=== PATIENT | male | born 1995 | race Hispanic/Latino ===

== ENCOUNTER 2024-03-19 20:35 | Emergency (ER) | payer SELFPAY ==
[2024-03-19 20:51] VITALS: BP 140/98
[2024-03-19 21:08] LABS: % Basophils 0.5 % (0-2); % Eosinophils 1.3 % (0-6); % Immature Granulocytes 0.5 % (0-0.5); % Lymphocytes 30.3 % (20.5-51.1); % Monocytes 5.2 % (1.7-9.3); % Neutrophils 62.2 % (42.2-75.2); Absolute Basophils 0.1 10^3/uL (0-0.2); Absolute Eosinophils 0.2 10^3/uL (0-0.7); Absolute Immature Granulocytes 0.1 10^3/uL (0-0.05); Absolute Lymphocytes 4.1 10^3/uL (1.2-3.4); Absolute Monocytes 0.7 10^3/uL (0.1-0.6); Absolute Neutrophils 8.4 10^3/uL (1.4-6.5); Hematocrit 41.6 % (39.0-52.0); Hemoglobin 14.6 g/dL (13.0-18.0); Mean Corp Hgb Conc. 35.1 g/dL (33.0-37.0); Mean Corpuscular Hgb 30.1 pg (27.0-31.0); Mean Corpuscular Volume 85.8 fL (80.0-94.0); Mean Platelet Volume 9.7 fL (7.4-10.4); Nucleated Red Blood Cells % 0 % (-); Platelet Count 359 10^3/uL (130-400); Red Blood Cell Count 4.85 10^6/uL (4.70-6.10); Red Cell Dist. Width 12.6 % (11.5-14.5); White Blood Cell Count 13.6 10^3/uL (4.8-10.8)
[2024-03-19 21:27] LABS: ALT (SGPT) 32 U/L (0-50); AST (SGOT) 23 U/L (17-59); Albumin 4.6 g/dl (3.5-5.0); Alkaline Phosphatase 99 U/L (38-126); Blood Urea Nitrogen 15 mg/dl (9-20); Calcium 9.8 mg/dl (8.4-10.2); Carbon Dioxide 25 mmol/L (22-30); Chloride 102 mmol/L (98-107); Glucose 125 mg/dl (70-99); Potassium 4.4 mmol/L (3.5-5.1); Sodium 139 mmol/L (135-145); Total Bilirubin 0.4 mg/dl (0.2-1.3); Total Protein 7.9 g/dl (6.3-8.2); eGFR > 60.00
[2024-03-19 21:28] LABS: Lipase 69 U/L (23-300)
--- NOTE | 2024-03-19 23:35 | ED.GENMED ---
History of Present Illness
General
Chief Complaint: Abdominal Pain
Time Seen by Provider: 03/19/24 23:19
Travel History
Have you had any contact with someone who has COVID-19?: No
Do you have any symptoms of coronavirus? Fever > 100 degrees, chills, cough, shortness of breath, sore throat, loss of taste or smell, muscle aches, or headache?: No
History of Present Illness
History of Present Illness:
HPI: At about 8 PM in the evening, the patient developed severe abrupt onset periumbilical pain. This is associated with nausea. He has not had pain like this in the past. He denies any prior surgical issues other than pilonidal cyst. He has not
had fevers.
EXAM:
GENERAL: Well appearing but appears somewhat uncomfortable
HEENT: Moist oral mucosa
CARDIOVASCULAR: No murmurs, normal heart rate, regular rhythm, No chest wall tenderness
PULMONARY: No respiratory distress, breath sounds are clear and equal
ABDOMEN: Soft with no peritoneal signs, mild. Tenderness
NEUROLOGIC: Excellent strength all extremities, no coordination deficits
PSYCHIATRIC: Appropriate mental status, normal insight and judgement
EXTREMITIES: Nontender, no edema, moves all extremities equally
SKIN: No rash, no lesions
TIME OF INITIAL ENCOUNTER: 11 PM
NUMBER AND COMPLEXITY OF PROBLEMS ADDRESSED AT THE ENCOUNTER
� Chronic conditions affecting care: ADHD, anxiety/depression, pilonidal cystectomy
� Acute Exacerbation and/or Progression of Chronic Illness: This is an acute problem
� Differential Diagnosis includes: Gastroenteritis, mesenteric adenitis, appendicitis, bowel obstruction, nonspecific abdominal pain
AMOUNT AND/OR COMPLEXITY OF DATA TO BE REVIEWED AND ANALYZED
� I performed an independent evaluation of and my interpretation is:
EKG:
CT: CT suggestive of mesenteric adenitis
X-rays:
Laboratory Studies: White count slightly elevated at 13.6, otherwise chemistries including LFTs and lipase are normal
Other:
� Review of other/old records:
� Clinical information was obtained by an independent historian: None needed
� Prescriptions/Medications Considered but not given:
� Further testing considered but not performed:
RISK OF COMPLICATIONS AND/OR MORBIDITY OR MORTALITY OF PATIENT MANAGEMENT
� Social determinants of health affecting care: Lives at home
� Discussion with other providers:
� Escalation of care including admission/observation vs risk of discharge considered: The patient was given Toradol, Zofran, fluids, and Pepcid upon arrival as he did appear somewhat uncomfortable. CT imaging obtained. CT
imaging suggest mesenteric adenitis. He was given Toradol earlier. On reassessment at 1:40 AM, the patient is very comfortable in appearance and is sleeping. As I woke him, he has appropriate mental status and appears very comfortable.
Recommended NSAIDs.
Phy Exam
Physical Exam
Physical Exam:
See HPI
Course
Orders/Labs/Results
Orders:
Orders
03/19/24 21:02
Complete Blood Count/With Diff Urgent
Comprehensive Metabolic Panel Urgent
Lipase Urgent
03/19/24 23:27
0.9% Sodium Chloride 1000 ml [Nss] 1,000 ml IV BOLUS
Famotidine [Pepcid] 20 mg IV NOW STA
Ketorolac [Toradol] 15 mg IV NOW STA
Ondansetron Injectable [Zofran] 4 mg IV NOW STA
03/20/24 00:20
CT Abd/pelvis W Iv Cont Urgent
Reason For Exam: severe periumb pain
Abnormal Lab Results
03/19/24
21:02
WBC 13.6 H 10^3/uL
(4.8-10.8)
Abs Immat Gran (auto) 0.1 H 10^3/uL
(0-0.05)
Absolute Neuts (auto) 8.4 H 10^3/uL
(1.4-6.5)
Absolute Lymphs (auto) 4.1 H 10^3/uL
(1.2-3.4)
Absolute Monos (auto) 0.7 H 10^3/uL
(0.1-0.6)
Glucose 125 H mg/dl
(70-99)
03/19/24 21:02
03/19/24 21:02
Vital Signs
Initial and Last Documented VS:
Initial Vital Signs
Temp Pulse Resp BP Pulse Ox
98.2 F 100 18 140/98 98
03/19/24 20:51 03/19/24 20:51 03/19/24 20:51 03/19/24 20:51 03/19/24 20:51
Last Documented Vital Signs
Temp Pulse Resp BP Pulse Ox
98.2 F 100 18 140/98 98
03/19/24 20:51 03/19/24 20:51 03/19/24 20:51 03/19/24 20:51 03/19/24 20:51
*Critical Care Note
Total Time (30-74mins, 75-104mins- exclusive of procedures): Not Applicable
ED Attending Note
-
Portions of this chart may have been created with voice recognition software.� Occasional wrong word or��sound alike� substitutions may have occurred due to the inherent limitations of voice recognition software.
Discharge Plan
Departure
Patient Disposition: Home (Routine Discharge)
Date of Disposition: 03/20/24
Time of Disposition: 01:41
Patient with high blood pressure during this ER visit?: Yes
Discharge Problem:
Acute mesenteric adenitis
Instructions: Mesenteric Lymphadenitis (DC)
Referrals:
NONE,* [Family Provider] -
Activity Restrictions/Additional Instructions:
Your symptoms appear to be due to a condition called mesenteric adenitis. This means inflammation of the lymph nodes inside of your abdomen. Please follow-up your primary care doctor. I recommend 3-4 [id number] ibuprofen (Motrin) every 8
hours with food for a few days. Return here if worse.
Interventions
Interventions:
*Risk Screen - Suicide Last Done: 03/19/24 20:51
*General Assessment Last Done: 03/19/24 20:51
*Neglect/Abuse Screening Last Done: 03/19/24 20:51
*ED COVID-19 Vaccine History Last Done: 03/19/24 20:51
YC-Yucpzk-Eoudbnzcsc Assessment Last Done: 03/20/24 00:08
Discharge Date and Time
Print Language: IRISH
[2024-03-19] MEDS: PEPCID 20 MG IV (23:51)
[2024-03-19] MEDS: NSS 1000 IV (23:51)
[2024-03-19] MEDS: ZOFRAN 4 MG IV (23:51)
[2024-03-19] MEDS: TORADOL 15 MG IV (23:52)
== END 2024-03-20 01:56 | disposition home or self-care (01) ==
LOC: EMR 20:35
PROVIDERS: EMERGENCY PHYSICIAN Emergency Medicine
DX: I88.0 Nonspecific mesenteric lymphadenitis (principal); R03.0 Elevated blood-pressure reading, without diagnosis of hypertension
CPT/HCPCS: 99285; 96374; 96375 ×2; 96361; 74177; 80053; 83690; 85025; Q9967